=== PATIENT | male | born 1960 | race Caucasian/White ===

== ENCOUNTER → 2024-07-05 10:07 | Outpatient (REF) | payer OTHER, SELFPAY | LOC: DHVS 10:07 | PROVIDERS: ATTENDING PHYSICIAN Surgery Vascular Surgery; FAMILY PHYSICIAN Family Medicine | DX: I77.79 Dissection of other specified artery (principal); I72.8 Aneurysm of other specified arteries | CPT/HCPCS: 93975 ==

== ENCOUNTER → 2025-07-05 10:07 | Outpatient (REF) | payer OTHER, SELFPAY | LOC: RAD 10:07 | PROVIDERS: ATTENDING PHYSICIAN Surgery Vascular Surgery; FAMILY PHYSICIAN Family Medicine | DX: I77.79 Dissection of other specified artery (principal) | CPT/HCPCS: 93975 ==